=== PATIENT | male | born 1965 | race Caucasian/White ===

== ENCOUNTER → 2024-10-29 | Outpatient (CLI) | payer BC ==
[2024-10-29 14:50] VITALS: BP 106/71; PULSE 98; RESP 18; TEMP 97.7
--- NOTE | 2024-10-29 15:32 | P.SLEEP ---
History of Present Illness DATE: 10/29/2024 CONSULTATION/NEW PATIENT EVALUATION HISTORY OF PRESENT ILLNESS/SLEEP-WAKE EVALUATION: 59-year-old gentleman had b een evaluated in the sleep center for possible obstructive sleep apnea hypopnea syndrome. SLEEP SCHEDULE: Usually sleep schedule from 7 PM to 6 AM 7 days a week. FALLING ASLEEP: Sometimes patient has difficulties with falling asleep, has TV set in bedroom. DURING SLEEP: Patient sleeps in different positions with snoring, episodes of gasping for air, awakenings from sleep 2 times with nocturia. No history of hypnogogical hallucinations, sleep paralysis, or cataplexy. DURING THE DAY/WAKE STATE: In the morning patient wake up tired, has difficulties to pay attention, falling asleep during the day, has problems with memory. Fleming Sleepiness Scale significantly increased to 15. Patient may take up to 3 naps during the day. PAST MEDICAL HISTORY: Hypertension, diabetes mellitus, acid reflux, cellulitis, hyperlipidemia, blood clot in groin area. PAST SURGICAL HISTORY: Status post right leg venous surgery. MEDICATIONS: Have been reviewed, please see below. SOCIAL HISTORY: Please see below. FAMILY HISTORY: Please see below. REVIEW OF SYSTEMS: Snoring, awakenings from sleep, sleepiness during the day. No fevers. No double vision. No recent chest pain. No shortness of breath. No abdominal pain. No bleeding episodes. No blood in urine. No seizure episodes. PHYSICAL EXAMINATION: GENERAL: A pleasant patient without any distress. VITAL SIGNS: Please see below weight 356.2 pounds, BMI 50.3. HEENT: PERRLA, EOMI. Evaluation of oropharynx showed tongue protrudes midline, low position of soft palate Mallampati 4. NECK: Supple. No JVD. Thyroid is not palpable. 21-1/4 inches in circumference. LUNGS: Clear to percussion and to auscultation. Good air exchange. No wheezing or rhonchi. HEART: S1, S2 regular. No murmurs, gallops or rubs. ABDOMEN: Soft and nontender. Bowel sounds are present. No organomegaly appreciated. EXTREMITIES: No clubbing or cyanosis. CLIN APPLICATION SPECIALIST: Awake, alert, and oriented x3. Cranial nerves 2 to 7 intact. There is no fasciculation or atrophy noted. No focal deficits observed. ASSESSMENT: 1. Snoring, multiple awakenings from sleep with nocturia, extremely low position of soft palate Mallampati 4, extremely wide neck 21-1/4 inches in circumference, sleepiness with Fleming Sleepiness Scale 15. Obstructive sleep apnea hypopnea syndrome. 2. Morbid obesity, BMI 50.3. 3. Hypertension. 4. Diabetes mellitus. 5 history of cellulitis. 6 . Hyperlipidemia. 7. History of thrombosis in groin area. PLAN: 1. Polysomnography for evaluation of patient's breathing during sleep. 2. Following plan after reading sleep study. 3. Preferable position during sleep on the side. 4. No driving if patient feels any sleepiness. Patient is aware of civil and criminal liability for unsafe driving. 5. Sleep hygiene with regular sleep time for at least 7.5-8 hours. 6. Watching and losing weight. Thank you very much for referring this patient for consultation. Sincerely, Talat Cunha MD, PhD, FAASM. Diplomat of [place] [employer], Sleep Medicine Board by [place] [employer] [place] [employer] [facility] [place] cc: Li Brandon PA-C Past Medical History Past Medical History: Asthma, Diabetes Mellitus, Hypertension Additional Past Medical History / Comment(s): BLOOD CLOT - R GROIN, CELLULITIS IN THE PAST - R LEG, History of Any Multi-Drug Resistant Organisms: None Reported Past Surgical History: Adenoidectomy, Appendectomy, Tonsillectomy Additional Past Surgical History / Comment(s): cYST - TAILBONE, R LEG - VEIN Past Psychological History: No Psychological Hx Reported Smoking Status: Never smoker Past Alcohol Use History: None Reported Past Drug Use History: None Reported - Past Family History Father Family Medical History: Cancer Additional Family Medical History / Comment(s): , CHAIN SMOKER, LOST BOTH LEGS TO THE HIP, UNKNOWN TYPE OF CANCER Mother Family Medical History: COPD Additional Family Medical History / Comment(s): CHAIN SMOKER, ON SUPPLEMENTAL OXYGEN Medications and Allergies Home Medications Medication Instructions Recorded Confirmed Type Furosemide [Lasix] 40 mg PO DAILY 10/29/24 10/29/24 History Losartan [Cozaar] 50 mg PO DAILY 10/29/24 10/29/24 History Pantoprazole [Protonix] 40 mg PO DAILY 10/29/24 10/29/24 History Warfarin [Coumadin] 7.5 mg PO DAILY 10/29/24 10/29/24 History glipiZIDE 10 mg PO DAILY 10/29/24 10/29/24 History metFORMIN HCL 500 mg PO BID 10/29/24 10/29/24 History Physical Exam Vitals: Vital Signs Temp Pulse Resp BP Pulse Ox 10/29/24 14:49 97.7 F 98 18 106/71 96 Intake and Output 10/29/24 10/29/24 10/29/24 06:59 14:59 22:59 Other: Weight 161.536 kg Sleep Note - Sleep Data ESS Total: 15 - Sleep Note Sleep Note: Temperature: 97.7 F Pulse Rate: 98 Respiratory Rate: 18 Blood Pressure: 106/71 SpO2: 96 Height: 5 ft 10.5 in Weight: 161.536 kg BMI: Neck Circumference: 21.2
== END ==
LOC: 3 N SLEEP 14:19
PROVIDERS: ATTEND Internal Medicine
DX: E11.9 Type 2 diabetes mellitus without complications (principal); G47.33 Obstructive sleep apnea (adult) (pediatric); E66.01 Morbid (severe) obesity due to excess calories; I10 Essential (primary) hypertension; E78.5 Hyperlipidemia, unspecified; Z68.43 Body mass index [BMI] 50.0-59.9, adult; Z87.2 Personal history of diseases of the skin and subcutaneous tissue; Z86.718 Personal history of other venous thrombosis and embolism
CPT/HCPCS: 99211

== ENCOUNTER → 2024-12-17 | Outpatient (CLI) | payer BC ==
--- NOTE | 2024-12-17 14:39 | US ---
EXAMINATION TYPE: US carotid duplex BILAT DATE OF EXAM: 12/17/2024 COMPARISON: NONE CLINICAL INDICATION: Male, 59 years old with history of R42 SYNCOPE; Syncope Additional History: .... TECHNIQUE: Grayscale, color Doppler and spectral Doppler evaluation of the bilateral carotid systems and vertebral arteries. Indirect Doppler criteria was utilized. FINDINGS: EXAM MEASUREMENTS: RIGHT: Peak Systolic Velocity (PSV) cm/sec ----- Right CCA: 86.4 ----- Right ICA: 73.3 ----- Right ECA: 116 ICA/CCA ratio: 0.8 RIGHT: End Diastole cm/sec ----- Right CCA: 18.2 ----- Right ICA: 23.0 ----- Right ECA: 14.3 LEFT: Peak Systolic Velocity (PSV) cm/sec ----- Left CCA: 93.0 ----- Left ICA: 65.8 ----- Left ECA: 98.1 ICA/CCA ratio: 0.9 LEFT: End Diastole cm/sec ----- Left CCA: 20.6 ----- Left ICA: 26.3 ----- Left ECA: 14.9 VERTEBRALS (direction of flow): Right Vertebral: Antegrade Left Vertebral: Antegrade Rhythm: Normal REGISTERED NURSE MATERNITY NOTES: No significant stenosis seen Color Doppler imaging shows patency with blood flow throughout the carotid artery. Spectral waveforms are within normal limits. IMPRESSION: Right: No hemodynamically significant stenosis. Left: No hemodynamically significant stenosis. Criteria for Assigning % of Stenosis / Diameter reduction (Estimation based on the indirect measurements of the internal carotid artery velocities (ICA PSV). 1. Normal (no stenosis)=ICA PSV < 180 cm/s: ratio < 2.0: ICA EDV<40 cm/s. 2. Less than 50% stenosis=ICA PSV < 180 cm/s: ratio < 2.0: ICA EDV<40 cm/s. 3. 50 to 69% stenosis=ICA PSV of 180 to 230 cm/s: ration 2.0 ? 4.0: ICA EDV 40-100 cm/s. PSV 125-180 cm/sec and ICA/CCA PSV Ratio ? 2.0 is also consistent with 50-69% stenosis 4. Greater than 70% stenosis to near occlusion= ICA PSV > 230 cm/s: ratio > 4.0: ICA EDV > 100 cm/s. 5. Near occlusion= ICA PSV velocities may be low or undetectable: variable ratio and ICA EDV. 6. Total occlusion=unable to detect flow. [facility], , 12/17/2024 2:37 PM
--- NOTE | 2024-12-18 12:57 | CA ---
Transthoracic Echo Report Name: Carlos Schneider Age: 59 Gender: M : 1965 Exam Date: 12/17/2024 14:49 Exam Location: [facility] Ht (in): 71 Wt (lb): 320 Ordering Physician: Chau Neves MD Attending/Referring Phys: Li Brandon PAC Reservations Agent Lucinda Barone RDCS Procedure CPT: Indications: R42 SYNCOPE Cardiac Hx: morbitly obese Technical Quality: Fair Contrast 1: Total Dose (mL): Contrast 2: Total Dose (mL): MEASUREMENTS (Male / Female) Normal Values 2D ECHO LV Diastolic Diameter PLAX 4.4 cm 4.2 - 5.9 / 3.9 - 5.3 cm LV Systolic Diameter PLAX 3.2 cm IVS Diastolic Thickness 1.2 cm 0.6 - 1.0 / 0.6 - 0.9 cm LVPW Diastolic Thickness 1.3 cm 0.6 - 1.0 / 0.6 - 0.9 cm LV Relative Wall Thickness 0.6 RV Internal Dim ED PLAX 2.9 cm LA Systolic Diameter LX 3.5 cm 3.0 - 4.0 / 2.7 - 3.8 cm LV Diastolic Volume MOD BP 118.8 cm??? 67 - 155 / 56 - 104 cm??? LV Systolic Volume MOD BP 45.7 cm??? 22 - 58 / 19 - 49 cm??? LV Ejection Fraction MOD BP 61.5 % >= 55 % LV Cardiac Index MOD BP 2667.3 cm???/min???m??? LV Diastolic Volume MOD 4C 117.3 cm??? LV Systolic Volume MOD 4C 34.2 cm??? LV Ejection Fraction MOD 4C 70.9 % LV Cardiac Index MOD 4C 3036.1 cm???/min???m??? LV Diastolic Length 4C 8.5 cm LV Systolic Length 4C 6.6 cm LV Diastolic Volume MOD 2C 115.6 cm??? LV Systolic Volume MOD 2C 50.6 cm??? LV Ejection Fraction MOD 2C 56.2 % LV Cardiac Index MOD 2C 2371.5 cm???/min???m??? LV Diastolic Length 2C 9.6 cm LV Systolic Length 2C 8.3 cm DOPPLER AV Peak Velocity 135.7 cm/s AV Peak Gradient 7.4 mmHg Mitral E Point Velocity 79.8 cm/s Mitral A Point Velocity 91.9 cm/s Mitral E to A Ratio 0.9 MV Deceleration Time 300.2 ms MV E' Velocity 6.8 cm/s Mitral E to MV E' Ratio 11.7 TR Peak Velocity 239.5 cm/s TR Peak Gradient 22.9 mmHg Right Ventricular Systolic Press 33.0 mmHg FINDINGS Left Ventricle Left ventricular ejection fraction is estimated at 45 %. Left ventricular cavity size normal. Normal left ventricular wall motion. Mildly increased septal wall thickness. Right Ventricle Normal right ventricular size. Right ventricular systolic pressure within normal limits. Right Atrium Normal right atrial size. No right atrial thrombus or mass seen. Left Atrium Normal left atrial size. No left atrial thrombus or mass present. Mitral Valve Structurally normal mitral valve. No mitral stenosis, regurgitation or prolapse. Aortic Valve Trileaflet aortic valve. No aortic valve stenosis or regurgitation. Aortic valve sclerosis. Tricuspid Valve Structurally normal tricuspid valve. Mild tricuspid regurgitation. Pulmonic Valve Pulmonic valve not well visualized. No pulmonic regurgitation. Pericardium No pericardial effusion. Aorta Normal size aortic root and proximal ascending aorta. CONCLUSIONS Normal LV size with somewhat decreased global contractility estimate ejection fraction of 45 to 50%. No significant abnormality on the Doppler exam. No pericardial effusion. No significant pulmonary hypertension. Previewed by: Dr. Sebastian Marinelli MD (Electronically Signed) Final Date: 18 Dec 2024 12:56
== END | disposition home or self-care (01) ==
LOC: RADUSWWP 14:00
PROVIDERS: ATTEND Family Medicine
DX: R42 Dizziness and giddiness (principal); E66.9 Obesity, unspecified
CPT/HCPCS: 93306; 93880